=== PATIENT | male | born 1955 ===

== ENCOUNTER 2022-06-21 08:10 | Day surgery (SDC) | payer MEDICARE ==
[~2022-06-21 08:10] MED LIST: Ak-Dilate OPHTHALMIC*** 1.065 ML, Cyclogyl 1% OPHTH SOL 1.065 ML, GATIFLOXACIN 0.5% OPH... OP ONE; BETADINE 5% OPHTHALMIC 30 ML OP ONE; Lactated Ringers 1,000 ML IV SCH; NON-FORMULARY ITEM OP ONE; TETRACAINE 0.5% STERI-UNIT SOL OP ONE; cefUROXime sodium 0.005 GM in Sodium Chloride Flush 30 ML*** 0.5 ML IJ ONE
[2022-06-21] MEDS ORDERED: Lactated Ringers 1,000 ML IV ONE ×2 (08:36→10:37)
[2022-06-21] MEDS ORDERED: Epinephrine Preservative Free 1 MG/ML IJ ONE (09:00)
[2022-06-21] MEDS ORDERED: ACETAZOLAMIDE 250 MG TABLET PO ONE (09:00)
[2022-06-21] MEDS ORDERED: LIDOCAINE HCL 1% 50 MG/5 ML VL PF IJ ONE (09:00)
[2022-06-21] MEDS ORDERED: Zofran 4 MG/2 ML VIAL IV PRN (09:00)
[2022-06-21] MEDS ORDERED: DIPRIVAN 200 MG/20 ML IV ONE (10:54)
[2022-06-21] MEDS ORDERED: Xylocaine-Mpf 2% 5 Ml Vial ONE (10:54)
[2022-06-21] MEDS ORDERED: Versed 2 MG/2 ML Injection ONE (10:55)
[2022-06-21] MEDS ORDERED: SUBLIMAZE 100 MCG/2 ML ONE (10:56)
[2022-06-21 11:28] VITALS: PULSE 74; O2SAT 96
[2022-06-21 11:34] VITALS: BP 145/92
== END 2022-06-21 11:41 | disposition home or self-care (01) ==
LOC: SDC 08:10
PROVIDERS: ATTEND Ophthalmology
DX: H25.811 Combined forms of age-related cataract, right eye (principal)
CPT/HCPCS: C1780; J0171; J2001; J2250; J2704; J3010; A9270-GY

== ENCOUNTER 2022-08-23 09:08 | Day surgery (SDC) | payer MEDICARE ==
[2022-08-23] MEDS ORDERED: Zofran 4 MG/2 ML VIAL IV PRN (10:00)
[2022-08-23] MEDS ORDERED: ACETAZOLAMIDE 250 MG TABLET PO ONE (10:00)
[2022-08-23] MEDS ORDERED: Lactated Ringers 1,000 ML IV ONE (10:23)
[2022-08-23] MEDS ORDERED: Xylocaine-Mpf 2% 5 Ml Vial ONE (11:25)
[2022-08-23] MEDS ORDERED: Versed 2 MG/2 ML Injection ONE (11:25)
[2022-08-23] MEDS ORDERED: DIPRIVAN 200 MG/20 ML IV ONE (11:25)
[2022-08-23 12:38] VITALS: BP 143/83; PULSE 75; O2SAT 99
[2022-08-23] MEDS ORDERED: Epinephrine Preservative Free 1 MG/ML ONE (15:17)
== END 2022-08-23 12:36 | disposition home or self-care (01) ==
LOC: SDC 09:08
PROVIDERS: ATTEND Ophthalmology
DX: H25.812 Combined forms of age-related cataract, left eye (principal)
CPT/HCPCS: C1780; J0171; J2250; J2704; A9270-GY